=== PATIENT | female | born 1940 | race African-American/Black ===

== ENCOUNTER 2024-07-13 13:49 | Inpatient (IN) | payer OTHER ==
[~2024-07-13] VITALS: Ht 167.6 cm; Wt 112.5 kg
[2024-07-13] MEDS ORDERED: ALBUTEROL (0.083%) 2.5MG/3ML NEB HHN STA (13:53)
[2024-07-13] MEDS ORDERED: IPRATROPIUM BROMIDE (0.02%) 0.5MG/2.5ML NEB HHN STA (13:53)
[2024-07-13 13:54] VITALS: RESP 30
[2024-07-13] MEDS: AZITHROMYCIN 500MG/250ML 250 ML IV ONE (14:00)
[2024-07-13 14:14] LABS: MEAN CORPUSCULAR HEMOGLOBIN 17.5 pg (28.0-32.0); MEAN CORPUSCULAR VOLUME 69.9 fL (81.0-99.0); MEAN PLATELET VOLUME 9.6 fl (7.4-10.4); PLATELET 142 x1000/uL (130-400); RED BLOOD CELL COUNT 3.29 mill/uL (4.2-5.4); RED CELL DISTRIBUTION WIDTH 24.9 % (11.6-14.6)
[2024-07-13 14:17] LABS: CHLORIDE 102 mEq/L (98-107); POTASSIUM 5.1 mEq/L (3.5-5.1); SODIUM 144 mEq/L (136-145)
[2024-07-13 14:18] LABS: CALCIUM 8.8 mg/dL (8.7-10.4); CARBON DIOXIDE 30 mEq/L (21-32)
[2024-07-13 14:22] LABS: DIFFERENTIAL COMMENT 1
[2024-07-13] MEDS: MAGNESIUM 2 G PREMIX 50 ML IV STA (14:22)
[2024-07-13] MEDS: METHYLPREDNISOLONE SOD SUCC 125MG/2ML (ACT-O-VIAL) IV STA (14:22)
[2024-07-13 14:23] LABS: CREATININE 1.8 mg/dL (0.6-1.0); GLUCOSE 62 mg/dL (70-105); HEMOGLOBIN. 5.8 g/dL (12.0-16.0); UREA NITROGEN BLOOD 30 mg/dL (9-23)
[2024-07-13 14:24] LABS: BG BASE EXCESS 1.4 mmol/L (-2.0-3.0); BG CARBOXYHEMOGLOBIN 2.9 % (0.5-1.5); BG DEOXYHEMOGLOBIN 1.6 % (0.0-5.0); BG FRACTION INSPIRED OXYGEN 50; BG HCO3 ACT 29.4 mmol/L (21.0-28.0); BG METHEMOGLOBIN 0.3 % (0.5-1.5); BG OXYGEN SATURATION 98.3 % (94.0-98.0); BG OXYHEMOGLOBIN 95.2 % (94.0-98.0); BG PCO2 73.8 mmHg (32.0-45.0); BG PH 7.218 (7.350-7.450); BG PO2 118.3 mmHg (83.0-108.0); BG SAMPLE SITE RIGHT RADIAL; BG TOTAL HEMOGLOBIN 6.2 g/dL (12.0-16.0); BG VENT MODE MASK - NRB
[2024-07-13 14:25] LABS: ALANINE AMINOTRANSFERASE 21 IU/L (10-49); ALBUMIN 3.1 g/dL (3.2-4.8); ASPARTATE AMINOTRANSFERASE 41 IU/L (<34); BILIRUBIN DIRECT 1.5 mg/dL (<=3.0); BILIRUBIN TOTAL 2.4 mg/dL (0.1-1.0); PROTEIN TOTAL 8.7 g/dL (6.0-8.3); TROPONIN I HIGH SENSITIVITY 72 ng/L (3.0-34)
[2024-07-13 14:26] LABS: LACTIC ACID 5.2 mmol/L (0.4-2.0)
[2024-07-13] MEDS: ACETAMINOPHEN 1000MG/100ML 100 ML IV ONE (14:44)
[2024-07-13 14:49] LABS: ANISOCYTOSIS 4+; MICROCYTOSIS 3+; NUCLEATED RED BLOOD CELLS 8 /100 WBC; PLATELET ESTIMATE NORMAL; TARGET CELLS 1+
[2024-07-13 14:50] LABS: HYPOCHROMASIA 3+
[2024-07-13 15:45] VITALS: RESP 34
[2024-07-13] MEDS ORDERED: ZOLPIDEM TARTRATE 5MG TABLET PO PRN (16:00)
[2024-07-13] MEDS ORDERED: HYDROCODONE/ACETAMINOPHEN 5/325MG TABLET PO PRN (16:00)
[2024-07-13] MEDS ORDERED: ONDANSETRON HCL 4MG/2ML INJ IV PRN (16:00)
[2024-07-13] MEDS: METHYLPREDNISOLONE SOD SUCC 40MG/ML (ACT-O-VIAL) IV SCH (16:00)
[2024-07-13] MEDS ORDERED: ACETAMINOPHEN 325MG TABLET PO PRN (16:00)
[2024-07-13] MEDS ORDERED: CLONIDINE 0.1MG TABLET PO PRN (16:00)
[2024-07-13 16:46] LABS: IRON 23 ug/dL (50-170)
[2024-07-13 16:49] LABS: TOTAL IRON BINDING CAPACITY 113 ug/dl (250-425)
[2024-07-13 16:51] LABS: PROTHROMBIN TIME 19.8 sec (9.6-11.0)
[2024-07-13] MEDS ORDERED: CEFTRIAXONE 1GM/50ML 50 ML IV SCH (17:00)
[2024-07-13 17:33] VITALS: RESP 24
[2024-07-13] MEDS: IPRATROPIUM BROMIDE (0.02%) 0.5MG/2.5ML NEB HHN SCH (17:33)
[2024-07-13] MEDS: ALBUTEROL (0.083%) 2.5MG/3ML NEB HHN SCH (17:33)
[2024-07-13 19:30] VITALS: RESP 19
[2024-07-13] MEDS: IPRATROPIUM/ALBUTEROL 0.5-3(2.5)MG/3ML NEB NEB SCH (19:30)
[2024-07-13 21:42] LABS: BG BASE EXCESS 2.4 mmol/L (-2.0-3.0); BG CARBOXYHEMOGLOBIN 2.5 % (0.5-1.5); BG DEOXYHEMOGLOBIN 0.8 % (0.0-5.0); BG FRACTION INSPIRED OXYGEN 50; BG HCO3 ACT 31.6 mmol/L (21.0-28.0); BG METHEMOGLOBIN 0.3 % (0.5-1.5); BG OXYGEN SATURATION 99.2 % (94.0-98.0); BG OXYHEMOGLOBIN 96.4 % (94.0-98.0); BG PH 7.193 (7.350-7.450); BG PO2 140.3 mmHg (83.0-108.0); BG SAMPLE SITE RIGHT RADIAL; BG TOTAL HEMOGLOBIN 8.5 g/dL (12.0-16.0)
[2024-07-14] VITALS (62 sets, daily range): BP systolic 91–167; BP diastolic 54–85; PULSE 47–84; RESP 0–24; TEMP 35.6–37.2; O2SAT 97–100
[2024-07-14] MEDS ORDERED: NOREPINEPHRINE 8MG/250ML PMX 250 ML IV PRN (00:45)
[2024-07-14 00:50] LABS: TROPONIN I HIGH SENSITIVITY 136 ng/L (3.0-34)
[2024-07-14] MEDS ORDERED: FENTANYL CITRATE/PF 1,000 MCG in SODIUM CHLORIDE 0.9% 80 ML IV PRN (01:15)
[2024-07-14] MEDS ORDERED: DEXMEDETOMIDINE 400 MCG/100 ML 100 ML IV PRN (01:15)
[2024-07-14] MEDS: FENTANYL 2500MCG/250ML PMX 250 ML IV PRN (03:08)
[2024-07-14] MEDS: DEXMEDETOMIDINE 400 MCG/100 ML 100 ML IV PRN ×2 (03:09→20:46)
[2024-07-14 03:56] LABS: BG BASE EXCESS 4.7 mmol/L (-2.0-3.0); BG CARBOXYHEMOGLOBIN 1.6 % (0.5-1.5); BG DEOXYHEMOGLOBIN 0.3 % (0.0-5.0); BG FRACTION INSPIRED OXYGEN 100; BG HCO3 ACT 30.3 mmol/L (21.0-28.0); BG METHEMOGLOBIN 0.2 % (0.5-1.5); BG OXYGEN SATURATION 99.7 % (94.0-98.0); BG OXYHEMOGLOBIN 97.9 % (94.0-98.0); BG PCO2 51.6 mmHg (32.0-45.0); BG PH 7.387 (7.350-7.450); BG PO2 274.5 mmHg (83.0-108.0); BG SAMPLE SITE RIGHT RADIAL; BG TOTAL HEMOGLOBIN 8.2 g/dL (12.0-16.0); BG VENT MODE VENT - AC
[2024-07-14 06:55] LABS: TROPONIN I HIGH SENSITIVITY 180 ng/L (3.0-34)
[2024-07-14] MEDS ORDERED: PROPOFOL 10MG/ML 100ML 100 ML IV PRN (07:15)
[2024-07-14] MEDS ORDERED: NALOXONE HCL 0.4MG/ML VIAL IV PRN (09:45)
[2024-07-14] MEDS ORDERED: AZITHROMYCIN 500MG/250ML 250 ML IV SCH (10:00)
[2024-07-14] MEDS: PANTOPRAZOLE SODIUM 40 MG/VIAL IV SCH (10:01)
[2024-07-14] MEDS: DOPAMINE 400MG/250ML PREMIX 250 ML IV PRN (10:01)
[2024-07-14 10:03] LABS: BASOPHILS % 0.4 % (0.0-2.0); HEMOGLOBIN. 7.1 g/dL (12.0-16.0); LYMPHOCYTES % 11.4 % (20.0-50.0); MEAN CORPUSCULAR HEMOGLOBIN 19.6 pg (28.0-32.0); MEAN CORPUSCULAR HGB CONC 28.3 g/dL (31.0-37.0); MEAN CORPUSCULAR VOLUME 69.2 fL (81.0-99.0); MEAN PLATELET VOLUME 9.9 fl (7.4-10.4); MONOCYTES % 7.2 % (2.0-8.0); PLATELET 96 x1000/uL (130-400); RED BLOOD CELL COUNT 3.61 mill/uL (4.2-5.4); RED CELL DISTRIBUTION WIDTH 23.8 % (11.6-14.6); WHITE BLOOD COUNT 5.9 x1000/uL (4.5-11.0)
[2024-07-14 10:06] LABS: DIFFERENTIAL COMMENT 1
[2024-07-14 10:07] LABS: ADD RBC MORPHOLOGY YES
[2024-07-14 10:10] LABS: BG BASE EXCESS 5.4 mmol/L (-2.0-3.0); BG CARBOXYHEMOGLOBIN 1.6 % (0.5-1.5); BG DEOXYHEMOGLOBIN 4.6 % (0.0-5.0); BG FRACTION INSPIRED OXYGEN 40; BG HCO3 ACT 29.4 mmol/L (21.0-28.0); BG METHEMOGLOBIN 0.3 % (0.5-1.5); BG OXYGEN SATURATION 95.3 % (94.0-98.0); BG OXYHEMOGLOBIN 93.5 % (94.0-98.0); BG PCO2 40.9 mmHg (32.0-45.0); BG PH 7.475 (7.350-7.450); BG PO2 72.2 mmHg (83.0-108.0); BG SAMPLE SITE RIGHT RADIAL; BG TOTAL HEMOGLOBIN 8.2 g/dL (12.0-16.0); BG VENT MODE VENT - AC
[2024-07-14 10:14] LABS: POTASSIUM 4.7 mEq/L (3.5-5.1)
[2024-07-14 10:15] LABS: CALCIUM 8.2 mg/dL (8.7-10.4)
[2024-07-14 11:03] LABS: CLARITY URINE TURBID (CLEAR); COLOR URINE DARK YELLOW (YELLOW); GLUCOSE URINE NEGATIVE (NEGATIVE); KETONES URINE NEGATIVE (NEGATIVE); LEUKOCYTE ESTERASE URINE NEGATIVE (NEGATIVE); NITRITE URINE NEGATIVE (NEGATIVE); OCCULT BLOOD URINE NEGATIVE (NEGATIVE); PROTEIN URINE 2+ (NEGATIVE); SPECIFIC GRAVITY URINE 1.018 (1.005-1.030)
[2024-07-14] MEDS: AZITHROMYCIN 500MG/250ML 250 ML IV SCH (11:13)
[2024-07-14] MEDS: CEFTRIAXONE 1GM/50ML 50 ML IV SCH (11:13)
[2024-07-14 11:22] LABS: BACTERIA URINE 4+
[2024-07-14 11:23] LABS: COARSE GRANULAR CASTS URINE 0-5 /lpf; HYALINE CASTS URINE 0-5 /lpf
[2024-07-14 11:24] LABS: RBC URINE 0-2 /hpf (0-2); SQUAMOUS EPITHELIAL CELL URINE 1+ /lpf (RARE/1+)
[2024-07-14 11:29] LABS: *AMPHETAMINES SCREEN URINE NEGATIVE (NEGATIVE)
[2024-07-14 11:30] LABS: *BARBITURATES SCREEN URINE NEGATIVE (NEGATIVE); *BENZODIAZEPINES SCREEN URINE NEGATIVE (NEGATIVE); *COCAINE SCREEN URINE NEGATIVE (NEGATIVE); CANNABINOID URINE SCREEN NEGATIVE (NEGATIVE); ECSTASY MDMA SCREEN URINE NEGATIVE (NEGATIVE); METHADONE URINE SCREEN NEGATIVE (NEGATIVE); OPIATES URINE SCREEN NEGATIVE (NEGATIVE); PHENCYCLIDINE URINE SCREEN NEGATIVE (NEGATIVE)
[2024-07-14] MEDS ORDERED: CEFEPIME 1GM IN DEXT 5% 50ML IV SCH (13:00)
[2024-07-14] MEDS ORDERED: LIDOCAINE HCL 1% 10 MG/ML 10ML VIAL ONE (14:33)
[2024-07-14 14:36] LABS: MICROCYTOSIS 3+; PLATELET ESTIMATE DECREASED; TARGET CELLS 1+
[2024-07-14 14:37] LABS: HYPOCHROMASIA 3+
[2024-07-14] MEDS: DEXT 5%/0.45% NACL 1000ML 1,000 ML IV SCH (17:17)
[2024-07-14 17:36] LABS: CREATININE URINE RANDOM 201.3 mg/dL
[2024-07-14] MEDS: CEFEPIME 1GM/50ML 50 ML IV SCH (18:58)
[2024-07-14] MEDS ORDERED: DEXTROSE 50% WATER 50ML SYRINGE IV PRN (22:45)
[2024-07-15] VITALS (109 sets, daily range): BP systolic 68–155; BP diastolic 42–128; PULSE 50–116; RESP 0–32; TEMP 36.1–36.7; O2SAT 97–100
[2024-07-15] MEDS: BLOOD SUGAR DIAGNOSTIC STRIP TEST SCH (00:32)
[2024-07-15] MEDS: INSULIN LISPRO 100 UNITS/ML SUBCUT SCH (00:36)
[2024-07-15] MEDS: PROPOFOL 10MG/ML 100ML 100 ML IV PRN (03:34)
[2024-07-15 05:50] LABS: HEMOGLOBIN. 8.6 g/dL (12.0-16.0); MEAN CORPUSCULAR HEMOGLOBIN 19.9 pg (28.0-32.0); MEAN CORPUSCULAR HGB CONC 29.6 g/dL (31.0-37.0); MEAN CORPUSCULAR VOLUME 67.4 fL (81.0-99.0); RED BLOOD CELL COUNT 4.31 mill/uL (4.2-5.4); RED CELL DISTRIBUTION WIDTH 25.1 % (11.6-14.6)
[2024-07-15 06:08] LABS: POTASSIUM 4.1 mEq/L (3.5-5.1)
[2024-07-15 06:09] LABS: CALCIUM 8.1 mg/dL (8.7-10.4)
[2024-07-15 06:58] LABS: DIFFERENTIAL COMMENT 1
[2024-07-15 09:32] LABS: BG BASE EXCESS 5.4 mmol/L (-2.0-3.0); BG CARBOXYHEMOGLOBIN 1.2 % (0.5-1.5); BG DEOXYHEMOGLOBIN 6.1 % (0.0-5.0); BG FRACTION INSPIRED OXYGEN 40; BG HCO3 ACT 29.1 mmol/L (21.0-28.0); BG METHEMOGLOBIN 0.3 % (0.5-1.5); BG OXYGEN SATURATION 93.8 % (94.0-98.0); BG OXYHEMOGLOBIN 92.4 % (94.0-98.0); BG PCO2 39.3 mmHg (32.0-45.0); BG PH 7.488 (7.350-7.450); BG PO2 67.5 mmHg (83.0-108.0); BG SAMPLE SITE RIGHT RADIAL; BG TOTAL HEMOGLOBIN 8.8 g/dL (12.0-16.0); BG VENT MODE VENT - AC
[2024-07-15 12:37] LABS: ANISOCYTOSIS 3+; HYPOCHROMASIA 1+; MICROCYTOSIS 2+; NUCLEATED RED BLOOD CELLS 9 /100 WBC; PLATELET ESTIMATE SLIGHTLY DECREASED; TARGET CELLS 1+
[2024-07-15 12:38] LABS: MEAN PLATELET VOLUME 9.6 fl (7.4-10.4); PLATELET 107 x1000/uL (130-400)
[2024-07-15] MEDS: VANCOMYCIN 1G PREMIX 200 ML IV SCH ×2 (15:49→20:19)
[2024-07-15 16:09] LABS: TROPONIN I HIGH SENSITIVITY 102 ng/L (3.0-34)
[2024-07-15] MEDS: METHYLPREDNISOLONE SOD SUCC 40MG/ML (ACT-O-VIAL) IV SCH (20:20)
== END 2024-07-15 23:05 | disposition short-term general hospital (02) | DRG 871 ==
LOC: ER 13:49 → MICUSO 15:32 → EDBEDREQTM 15:34 → EDBEDREQ 15:34 → EDBEDREQSVC 07-14 06:40 → MICUSO 07-14 08:46
PROVIDERS: ADMIT Internal Medicine; ATTEND Internal Medicine
PROC: 5A09357 Assistance with Respiratory Ventilation, Less than 24 Consecutive Hours, Continuous Positive Airway Pressure (ICD-10-PCS; 2024-07-13)
PROC: 30233N1 Transfusion of Nonautologous Red Blood Cells into Peripheral Vein, Percutaneous Approach (ICD-10-PCS; 2024-07-13)
PROC: 5A1945Z Respiratory Ventilation, 24-96 Consecutive Hours (ICD-10-PCS; principal; 2024-07-14)
PROC: 0BH18EZ Insertion of Endotracheal Airway into Trachea, Via Natural or Artificial Opening Endoscopic (ICD-10-PCS; 2024-07-14)
PROC: 06H033Z Insertion of Infusion Device into Inferior Vena Cava, Percutaneous Approach (ICD-10-PCS; 2024-07-14)
PROC: B549ZZA Ultrasonography of Inferior Vena Cava, Guidance (ICD-10-PCS; 2024-07-14)
DX: A41.9 Sepsis, unspecified organism (principal); G93.41 Metabolic encephalopathy; J96.02 Acute respiratory failure with hypercapnia; I21.A1 Myocardial infarction type 2; J96.01 Acute respiratory failure with hypoxia; J18.9 Pneumonia, unspecified organism; J44.1 Chronic obstructive pulmonary disease with (acute) exacerbation; N17.9 Acute kidney failure, unspecified; N39.0 Urinary tract infection, site not specified; E87.20 Acidosis, unspecified; J44.0 Chronic obstructive pulmonary disease with (acute) lower respiratory infection; R65.20 Severe sepsis without septic shock; I12.9 Hypertensive chronic kidney disease with stage 1 through stage 4 chronic kidney disease, or unspecified chronic kidney disease; R00.1 Bradycardia, unspecified; N18.9 Chronic kidney disease, unspecified; E88.09 Other disorders of plasma-protein metabolism, not elsewhere classified; D50.9 Iron deficiency anemia, unspecified; D69.6 Thrombocytopenia, unspecified; E78.5 Hyperlipidemia, unspecified; R79.1 Abnormal coagulation profile; E80.6 Other disorders of bilirubin metabolism; S31.000A Unspecified open wound of lower back and pelvis without penetration into retroperitoneum, initial encounter; X58.XXXA Exposure to other specified factors, initial encounter; Y93.89 Activity, other specified; Y92.89 Other specified places as the place of occurrence of the external cause; Y99.8 Other external cause status
CPT/HCPCS: 31500; 36415; 36430; 36573; 36600; 71045; 76770; 80048; 80076; 80305; 81003; 82375; 82570; 82805; 82962; 83036; 83540; 83550; 83605; 83735; 83880; 84145; 84156; 84484; 85025; 86850; 86900; 86920; 87070; 87077; 87186; 93005; 93306; 93970; 94002; 94003; 94070; 94640; 94660; 99291; A4606; A6261; C1725; J0456; J0692; J0696; J1265; J1815; J2003; J2405; J2470; J2704; J2919; J2920; J3010; J3370; J3475; J3490; P9016; Q9957; J0131